=== PATIENT | male | born 1980 | race American Indian/Alaskan Native ===

== ENCOUNTER 2016-12-16 14:51 | Emergency (ER) | payer OTHER ==
[2016-12-16 15:21] VITALS: TEMP 98.4
--- NOTE | 2016-12-16 15:59 | ED PDOC ---
Arrival/HPI - General Chief Complaint: Eye Problem Time Seen by Provider: 12/16/16 15:59 Historian: Patient - History of Present Illness Narrative History of Present Illness (Text): 12/16/16 16:35 36yr old male presents today with left eye irritation and photophobia. Patient states since last night he started to develop foreign body sensation in the left eye that has been gradually worsening. Pt no c/o photophobia. He denies any trauma or injury. Denies headaches dizziness or weakness. Patient is describing a foreign body sensation in the left eye in the upper aspects of the eye lid. He denies swelling. Denies fevers or chills. No medications have been taken for pain at home. He should states he was working outside all day yesterday but he does not remember getting anything inside the eye. He denies any allergies. No other complaints. Time/Duration: 24 hours Symptom Onset: Gradual Symptom Course: Worsening Quality: Other (No pain/foreign body sensation; itchy) Past Medical History - Provider Review Nursing Documentation Reviewed: Yes - Travel History Have you recently traveled outside [place] w/in the past 3 mons?: No - Infectious Disease Hx of Infectious Diseases: None - Psychiatric Hx Substance Use: No - Anesthesia Hx Anesthesia: Yes Hx Anesthesia Reactions: No Hx Malignant Hyperthermia: No Family/Social History - Physician Review Nursing Documentation Reviewed: Yes Family/Social History: Unknown Family HX Smoking Status: Never Smoked Hx Alcohol Use: No Hx Substance Use: No Allergies/Home Meds Allergies/Adverse Reactions: Allergies No Known Allergies Allergy (Verified 12/16/16 15:21) Review of Systems - Review of Systems Constitutional: absent: Fatigue, Fevers Eyes: Photophobia, Other (Foreign body sensation left eye). absent: Eye Pain Respiratory: absent: SOB, Cough Cardiovascular: absent: Chest Pain, Palpitations Gastrointestinal: absent: Abdominal Pain, Diarrhea, Nausea, Vomiting Genitourinary Male: absent: Dysuria, Frequency Musculoskeletal: absent: Arthralgias, Back Pain Skin: absent: Rash Neurological: absent: Headache, Dizziness Physical Exam Vital Signs Reviewed: Yes Vital Signs Temp Pulse Resp BP Pulse Ox 12/16/16 16:51 77 18 121/76 100 12/16/16 15:17 98.4 F 75 19 119/80 99 Temperature: Afebrile Blood Pressure: Normal Pulse: Regular Respiratory Rate: Normal Appearance: Positive for: Well-Appearing, Non-Toxic, Comfortable Pain Distress: None Mental Status: Positive for: Alert and Oriented X 3 - Systems Exam Head: Present: Atraumatic. No: Tenderness, Swelling Pupils: Present: PERRL Extroacular Muscles: Present: EOMI. No: Entrapment Conjunctiva: Present: Injected (Slight left eye conjunctival injection), Other ( No corneal abrasion or ulceration. No hyphema. There is no periorbital edema or erythema. Pressure in both eyes is 13. ) Mouth: Present: Moist Mucous Membranes Neck: Present: Normal Range of Motion Respiratory/Chest: Present: Clear to Auscultation, Good Air Exchange. No: Respiratory Distress, Accessory Muscle Use Cardiovascular: Present: Regular Rate and Rhythm, Normal S1, S2. No: Murmurs Neurological: Present: Gait Normal Skin: Present: Warm, Dry Psychiatric: Present: Alert, Oriented x 3 Medical Decision Making ED Course and Treatment: 12/16/16 16:38 Patient is nontoxic well appearing in no distress Visual acuity within normal limits pt seen and evaluated by dr. osorio. pressure in both eyes is within normal limits left eye; Conjunctival injection noted, PERRLA, extraocular muscles intact, no corneal abrasion. eye was flushed; no fb visualized; photophobia resolved; still with fb sensation. will place patient on abx and have him f/u with eye doctor within the next 2 days. advised immediate return if symptoms worsen,persist or if new symptoms develop. Patient verbalizes understanding of discharge instructions and need for immediate followup. all aspects of this case were discussed the attending of record. Impression: eye irritation Tobrex: 2 drops in the affected eye 4 times daily Followup with the eye doctor within the next 2 days Return immediately if symptoms worsen persist or if new symptoms develop; blurry vision, worsening eye pain, worsening redness or any other concerning symptoms develop. Follow up with the primary care physician within the next 2 days Disposition/Present on Arrival - Present on Arrival Any Indicators Present on Arrival: No History of DVT/PE: No History of Uncontrolled Diabetes: No Urinary Catheter: No History of Decub. Ulcer: No History Surgical Site Infection Following: None - Disposition Have Diagnosis and Disposition been Completed?: Yes Diagnosis: Irritation of left eye Disposition: HOME/ ROUTINE Disposition Time: 15:59 Patient Plan: Discharge Condition: GOOD Additional Instructions: Tobrex: 2 drops in the affected eye 4 times daily Followup with the eye doctor within the next 2 days Return immediately if symptoms worsen persist or if new symptoms develop; blurry vision, worsening eye pain, worsening redness or any other concerning symptoms develop. Follow up with the primary care physician within the next 2 days Prescriptions: Tobramycin 0.3% [Tobramycin 5 Ml] 2 drop OS QID #1 bottle Referrals: Tawanda Soriano MD [Staff Provider] - Follow up with primary Dariel Freeman MD [Staff Provider] - Follow up with primary Forms: WORK NOTE
[2016-12-16 16:52] VITALS: BP 121/76; PULSE 77; RESP 18; O2SAT 100
== END 2016-12-16 16:51 | disposition home or self-care (01) ==
LOC: ED 14:51
DX: H57.8 Other specified disorders of eye and adnexa (principal)